=== PATIENT | male | born 1990 | race African-American/Black ===

== ENCOUNTER 2017-10-26 21:25 | Emergency (ER) | payer MEDICAID ==
[~2017-10-26] VITALS: Ht 172.7 cm; Wt 72.2 kg
[~2017-10-26 21:25] MED LIST: NO; ULTRAM50 M1 PO; ULTRAM50 MG PO
[2017-10-26 21:48] VITALS: BP 133/75
== END 2017-10-26 23:26 | disposition left against medical advice (07) | DRG 951 ==
LOC: ED 21:25 → LWOBS 23:26
DX: Z91.19 Patient's noncompliance with other medical treatment and regimen (principal)

== ENCOUNTER 2018-12-07 16:59 | Emergency (ER) | payer MEDICARE, MEDICAID ==
[~2018-12-07] VITALS: Ht 172.7 cm; Wt 74.1 kg
[2018-12-07] MEDS ORDERED: CRIXIVAN400 MG PO (17:20)
[2018-12-07] MEDS ORDERED: COMBIVIR 1501 COMBO PO (17:20)
[2018-12-07 17:39] LABS: HEMATOCRIT 46.8 % (39.0-50.0); HEMOGLOBIN 15.6 g/dl (14.0-18.0); IMMATURE GRANULOCYTES 0.2 % (0.0-5.0); MEAN CELL VOLUME 90.5 fL CALC (80.0-100.0); MEAN CORPUSCULAR HGB 30.2 pG CALC (26.0-32.0); MEAN CORPUSCULAR HGB CONC 33.3 g/L CALC (32.0-36.0); NEUT# 2.7 thou/uL (1.82-7.42); RED BLOOD COUNT 5.17 mill/uL (4.70-6.10); RED CELL DISTRI WIDTH 12.6 % (11.5-15.5)
[2018-12-07 17:48] LABS: URINE BILIRUBIN - DIPSTICK NEGATIVE (NEGATIVE); URINE BLOOD DIPSTICK TRACE-INTACT (NEGATIVE); URINE COLOR YELLOW; URINE GLUCOSE - DIPSTICK NEGATIVE (NEGATIVE); URINE KETONE TRACE mg/dL (NEGATIVE); URINE LEUK ESTERASE NEGATIVE (NEGATIVE); URINE NITRITE - DIPSTICK NEGATIVE (Negative); URINE PROTEIN - DIPSTICK NEGATIVE (NEG-TRACE); URINE SPECIFIC GRAVITY >=1.030; URINE UROBILINOGEN - DIPSTICK 0.2 E.U./dL (0.2)
[2018-12-07 18:03] LABS: ALBUMIN 4.5 g/dL (3.2-5.0); ALKALINE PHOSPHATASE 83 u/l (38-126); ANION GAP 14 (6-22 (CALC)); BILIRUBIN, TOTAL 0.4 mg/dL (0.0-1.4); BUN 18 mg/dL (9-20); BUN/CREATININE RATIO 19 (12-20 (CALC)); CARBON DIOXIDE 29 mmol/l (22-30); CHLORIDE 100 mmol/l (95-108); CPK 185 u/l (52-200); CREATININE 0.9 mg/dL (0.7-1.3); GFR > 60 ML/MIN (>=60 (CALC)); GFR FOR AFR.AMER. > 60 ML/MIN (>=60 (CALC)); POTASSIUM 4.3 mmol/l (3.5-5.1); SGOT/AST 30 u/l (17-59); SODIUM 139 mmol/l (137-146)
[2018-12-07 18:20] VITALS: BP 139/74
== END 2018-12-07 18:20 | disposition home or self-care (01) ==
LOC: ED 16:59
PROVIDERS: Emergency Medicine
DX: S61.235A Puncture wound without foreign body of left ring finger without damage to nail, initial encounter (principal); W46.0XXA Contact with hypodermic needle, initial encounter; Y93.89 Activity, other specified; Z77.21 Contact with and (suspected) exposure to potentially hazardous body fluids

== ENCOUNTER 2020-05-24 22:44 | Emergency (ER) | payer MEDICARE, MEDICAID ==
[~2020-05-24] VITALS: Ht 175.3 cm; Wt 74.1 kg
[~2020-05-24 22:44] MED LIST changes: +COMBIVIR 1501 COMBO PO; +CRIXIVAN400 MG PO
[2020-05-24] MEDS ORDERED: NOVOLOG100 UNIT/M SC (23:02)
[2020-05-24] MEDS ORDERED: NOVOLOG MIX SC (23:04)
[2020-05-25 00:18] VITALS: BP 122/71
== END 2020-05-25 00:26 | disposition home or self-care (01) ==
LOC: ED 22:44
DX: E11.649 Type 2 diabetes mellitus with hypoglycemia without coma (principal); T38.3X5A Adverse effect of insulin and oral hypoglycemic [antidiabetic] drugs, initial encounter; Z79.4 Long term (current) use of insulin

== ENCOUNTER 2020-10-11 07:51 | Emergency (ER) | payer MEDICARE, MEDICAID ==
[~2020-10-11] VITALS: Ht 175.3 cm; Wt 73.9 kg
[~2020-10-11 07:51] MED LIST changes: +NOVOLOG MIX SC; +NOVOLOG100 UNIT/M SC
[2020-10-11] MEDS ORDERED: FLEXERIL5 M1 PO (08:36)
[2020-10-11] MEDS ORDERED: MOTRIN800 MG PO (08:36)
[2020-10-11 09:22] VITALS: BP 124/80
== END 2020-10-11 09:27 | disposition home or self-care (01) ==
LOC: ED 07:51
DX: M54.31 Sciatica, right side (principal); E11.9 Type 2 diabetes mellitus without complications; Z79.4 Long term (current) use of insulin

== ENCOUNTER 2021-12-22 11:07 | Emergency (ER) | payer MEDICARE, MEDICAID ==
[~2021-12-22] VITALS: Ht 175.3 cm; Wt 65.0 kg
[~2021-12-22 11:07] MED LIST changes: +FLEXERIL5 M1 PO; +MOTRIN800 MG PO
[2021-12-22 11:13] VITALS: BP 101/75
[2021-12-22 11:15] VITALS: BP 97/65
[2021-12-22] MEDS ORDERED: METFORMIN500 M2 PO (11:18)
[2021-12-22] MEDS ORDERED: ERYTHROMYCIN O3.5 GM OS (11:28)
== END 2021-12-22 11:47 | disposition home or self-care (01) ==
LOC: ED 11:07
DX: H00.015 Hordeolum externum left lower eyelid (principal); E11.9 Type 2 diabetes mellitus without complications; Z79.4 Long term (current) use of insulin; Z79.84 Long term (current) use of oral hypoglycemic drugs